=== PATIENT | female | born 1995 | race Caucasian/White ===

== ENCOUNTER 2016-09-03 21:13 | Emergency (ER) | payer SELFPAY ==
[2016-09-03 22:45] VITALS: BP 143/73
== END 2016-09-03 22:45 | disposition home or self-care (01) ==
LOC: ED 21:13
DX: J02.9 Acute pharyngitis, unspecified (principal)

== ENCOUNTER 2016-11-11 05:07 | Emergency (ER) | payer SELFPAY ==
[2016-11-11 05:16] VITALS: BP 109/79
== END 2016-11-11 05:47 | disposition home or self-care (01) ==
LOC: ED 05:07
DX: L02.211 Cutaneous abscess of abdominal wall (principal)
CPT/HCPCS: 90715